=== PATIENT | female | born 1980 | race Caucasian/White ===

== ENCOUNTER 2019-06-21 12:42 | Inpatient (IN) | payer BC ==
[2019-06-21] MEDS: hydrALAzine 20 MG INJ IV ×3 (14:05→14:31)
[2019-06-21] MEDS ORDERED: LABETALOL HCL 20MG INJ IV (14:30)
[2019-06-21] MEDS ORDERED: NACL 0.9% 3 ML SYG IV (14:30)
[2019-06-21] MEDS ORDERED: MAGNESIUM SULFATE 4 GM/100 ML 100 ML (14:59)
[2019-06-21] MEDS ORDERED: CEFAZOLIN 2 GM/50 ML (PMX) 50 ML IVPB (15:00)
[2019-06-21] MEDS ORDERED: MISOPROSTOL 200 MCG TAB PR ×2 (15:00→18:00)
[2019-06-21] MEDS ORDERED: CA GLUCONATE (GM) 10% 10ML INJ IV (15:00)
[2019-06-21] MEDS ORDERED: CARBOPROST 250 MCG INJ IM ×2 (15:00→18:00)
[2019-06-21] MEDS ORDERED: OXYTOCIN 30 UNITS/LR 500 ML IV ×3 (15:00→17:18)
[2019-06-21] MEDS ORDERED: METHYLERGONOVINE 0.2 MG INJ IM ×2 (15:00→18:00)
[2019-06-21] MEDS: LABETALOL HCL 20MG INJ IV (15:08)
[2019-06-21] MEDS: MAGNESIUM SULFATE 4 GM/100 ML 100 ML IV (15:32)
[2019-06-21] MEDS: MAGNESIUM SULFATE 40GM/1000ML 1,000 ML IV (15:33)
[2019-06-21] MEDS: LACTATED RINGER'S 1,000 ML IV ×2 (15:35→17:31)
[2019-06-21] MEDS ORDERED: morphine SULFATE/PF (10 MG/10 ML) INJ (16:22)
[2019-06-21] MEDS ORDERED: METOCLOPRAMIDE 10 MG INJ (16:22)
[2019-06-21] MEDS ORDERED: KETOROLAC 30 MG INJ (16:22)
[2019-06-21] MEDS ORDERED: PHENYLephrine (100 MCG/ML) 10ML SYG (16:46)
[2019-06-21] MEDS: CITRIC ACID/NA CITRATE 30 ML CUP PO (17:00)
[2019-06-21] MEDS: OXYTOCIN 30 UNITS/LR 500 ML IV ×2 (17:59→23:06)
[2019-06-21] MEDS ORDERED: LANOLIN HPA 1 PKT TOP (18:00)
[2019-06-21] MEDS ORDERED: morphine 2 MG INJ IV ×6 (18:00)
[2019-06-21] MEDS ORDERED: KETOROLAC 30 MG INJ IV (18:00)
[2019-06-21] MEDS: ACETAMINOPHEN 1000MG/100ML IV 100 ML IVPB (18:00)
[2019-06-21] MEDS ORDERED: NALOXONE (0.4 MG/ML) INJ IV (18:00)
[2019-06-21] MEDS ORDERED: DIPHENHYDRAMINE 50 MG INJ IV ×2 (18:00)
[2019-06-21] MEDS ORDERED: METHYLERGONOVINE 0.2 MG TAB PO (18:00)
[2019-06-21] MEDS: ONDANSETRON 4 MG INJ IV (18:35)
[2019-06-21] MEDS: KETOROLAC 30 MG INJ IV (20:31)
[2019-06-21] MEDS: SENNA/DOCUSATE NA (8.6MG/50MG) TAB PO (21:00)
[2019-06-22] MEDS: LACTATED RINGER'S 1,000 ML IV ×3 (06:25→22:30)
[2019-06-22] MEDS: KETOROLAC 30 MG INJ IV ×2 (06:48→16:51)
[2019-06-22] MEDS: LABETALOL HCL 20MG INJ IV (06:51)
[2019-06-22] MEDS: SENNA/DOCUSATE NA (8.6MG/50MG) TAB PO ×2 (08:21→22:10)
[2019-06-22] MEDS: metFORMIN 500 MG TAB PO ×3 (09:53→18:38)
[2019-06-22] MEDS: LABETALOL 200 MG TAB PO ×2 (09:53→22:11)
[2019-06-22] MEDS ORDERED: DEXTROSE 50% 50 ML SYRINGE IV ×2 (10:00)
[2019-06-22] MEDS ORDERED: GLUCOSE GEL 15 GRAM TUBE BUCCAL (10:00)
[2019-06-22] MEDS ORDERED: GLUCAGON 1 MG INJ IM (10:00)
[2019-06-22] MEDS ORDERED: GLUCOSE GEL 15 GRAM TUBE PO ×2 (10:00)
[2019-06-22] MEDS ORDERED: ACCU-CHEK XX (10:05)
[2019-06-22] MEDS: MAGNESIUM SULFATE 40GM/1000ML 1,000 ML IV (11:47)
[2019-06-22] MEDS: ACCU-CHEK XX ×3 (11:48→22:11)
[2019-06-22] MEDS: BISACODYL 10 MG SUPP PR (21:00)
[2019-06-22] MEDS: MAGNESIUM HYDROXIDE 30ML CUP PO (22:10)
[2019-06-22] MEDS: INSULIN ASPART [NOVOLOG] 3 ML PEN SC (23:01)
[2019-06-23] MEDS: IBUPROFEN 800 MG TAB PO ×3 (03:00→18:17)
[2019-06-23] MEDS: LACTATED RINGER'S 1,000 ML IV (06:30)
[2019-06-23] MEDS: HYDROCODONE/APAP (5/325) TAB PO ×3 (07:04→21:46)
[2019-06-23] MEDS ORDERED: INSULIN ASPART [NOVOLOG] 3 ML PEN SC (08:05)
[2019-06-23] MEDS: MAGNESIUM HYDROXIDE 30ML CUP PO (08:44)
[2019-06-23] MEDS: SENNA/DOCUSATE NA (8.6MG/50MG) TAB PO ×2 (08:44→21:44)
[2019-06-23] MEDS: metFORMIN 500 MG TAB PO ×3 (08:44→18:17)
[2019-06-23] MEDS: LABETALOL 200 MG TAB PO ×2 (08:45→21:45)
[2019-06-23] MEDS: INSULIN ASPART [NOVOLOG] 3 ML PEN SC ×4 (08:54→21:00)
[2019-06-23] MEDS: ACCU-CHEK XX ×4 (08:55→21:45)
[2019-06-23] MEDS: BISACODYL 10 MG SUPP PR (14:37)
[2019-06-24] MEDS: IBUPROFEN 800 MG TAB PO (06:15)
[2019-06-24] MEDS: ACCU-CHEK XX ×2 (07:35→13:10)
[2019-06-24] MEDS: INSULIN ASPART [NOVOLOG] 3 ML PEN SC ×2 (08:05→13:09)
[2019-06-24] MEDS: LABETALOL 200 MG TAB PO (08:43)
[2019-06-24] MEDS: SENNA/DOCUSATE NA (8.6MG/50MG) TAB PO (08:43)
[2019-06-24] MEDS: metFORMIN 500 MG TAB PO ×2 (08:43→13:00)
[2019-06-24] MEDS: DIPHTH/TET/ACEL PERTUSS (ADULT) 0.5 ML VIAL IM* (09:00)
[2019-06-24] MEDS: MEASLES,MUMPS,RUBELLA VACCINE INJ SC* (09:00)
[2019-06-24] MEDS: HYDROCODONE/APAP (5/325) TAB PO (16:04)
== END 2019-06-24 16:15 | disposition home or self-care (01) | DRG 788 ==
LOC: OBT 12:42 → L-D 12:42 → OBT 15:00 → L-D 15:00 → PP1 20:53
PROC: 10907ZC Drainage of Amniotic Fluid, Therapeutic from Products of Conception, Via Natural or Artificial Opening (ICD-10-PCS; principal; 2019-06-21 16:30)
PROC: 10D00Z1 Extraction of Products of Conception, Low, Open Approach (ICD-10-PCS; 2019-06-21 16:30)
DX: O13.3 Gestational [pregnancy-induced] hypertension without significant proteinuria, third trimester (principal); O24.424 Gestational diabetes mellitus in childbirth, insulin controlled; O14.14 Severe pre-eclampsia complicating childbirth; Z3A.36 36 weeks gestation of pregnancy; Z37.0 Single live birth; Z79.4 Long term (current) use of insulin; Z79.01 Long term (current) use of anticoagulants
CPT/HCPCS: 36415; 76815; 76818; 80048; 80053; 81001; 82803; 82962; 83735; 84560; 85025; 85384; 85610; 85730; 86592; 86850; 86900; 86901; 87340; 88307; 96374; 99464